=== PATIENT | female | born 1980 | race Caucasian/White ===

== ENCOUNTER → 2016-08-03 | Outpatient (CLI) | payer OTHER | LOC: LAB 13:20 | DX: N95.1 Menopausal and female climacteric states (principal); R23.2 Flushing | CPT/HCPCS: 36415; 83001; 83002; 84443 ==

== ENCOUNTER → 2016-09-10 | Outpatient (CLI) | payer OTHER | LOC: RAD 15:43 | DX: S09.92XA Unspecified injury of nose, initial encounter (principal); W19.XXXA Unspecified fall, initial encounter; S02.2XXA Fracture of nasal bones, initial encounter for closed fracture | CPT/HCPCS: 70220 ==